=== PATIENT | female | born 1995 | race Caucasian/White ===

== ENCOUNTER 2016-10-14 14:48 | Inpatient (IN) | payer BC ==
[~2016-10-14] VITALS: Ht 160 cm; Wt 85.3 kg
[2016-10-18] MEDS ORDERED: LEVAQUIN DPS500 MG PO (15:43)
[2016-10-18] MEDS ORDERED: TYLENOL DPS325 MG PO (15:43)
[2016-10-18] MEDS ORDERED: PEPCID DPS20 MG PO (15:43)
[2016-10-18] MEDS ORDERED: COLACE-DPS100 MG PO (15:44)
[2016-10-18] MEDS ORDERED: MAALOX DPS30 ML PO (15:44)
[2016-10-18] MEDS ORDERED: MOTRIN-DPS400 MG PO (15:44)
[2016-10-18] MEDS ORDERED: ZOFRAN8 MG PO (15:44)
--- NOTE | 2016-10-20 15:34 | ER ---
ADMIT: 10/14/2016 RM/LOC: 625 [facility] MR#: [id number] [address] [facility] [address] [place], [place] [address] RIVERACHRISTOPHERJAY [facility] [place] [address] Emergency Room Report SEX: F AGE: 21 : 1995 DATE: 10/14/2016 HISTORY: The patient is a 21-year-old female, who presents to emergency room after 2 days of urinary tract infection. She was seen by Dr. Montalvo in the clinic 2 days ago, given Levaquin because she is allergic to Ceclor. The patient has had 3 doses of the antibiotic, but continues to have awful headache. She describes it as very annoying top of the head headache, nausea, low back pain with low abdominal tenderness, and low-grade fever. Her white count at Dr. Montalvo's office was 10.8, today we repeated the white count in spite of the antibiotics, is 14.7. Her GFR is 81, her UA shows wbc's 65 with clumps, blood 1+, leukocytes 2+, protein 2+, and rbc's 4. Culture sensitivity to follow. She had received 1 bag of normal saline to rehydrate her. Dr. Gilliam on-call DrAmberly for Dr. Montalvo gave orders. IMPRESSION: Pyelonephritis, acute nonresponsive to oral agents. Family notified, the patient will be admitted for antibiotic therapy. SHAYY Hood / Armando Trejo MD / anastasia JOB #: [id number] CC: Gerson Montalvo MD, Attending Physician Gerson Montalvo MD, Family Physician
--- NOTE | 2016-11-12 07:54 | DS ---
ADMIT: 10/14/2016 RM/LOC: 625 [facility] MR#: [id number] 2620 [facility] [address] [place], [place] [address] JAY RIVERA [facility] [place] [address] General Discharge Summary SEX: F AGE: 21 : 1995 ADMISSION DATE: 10/14/2016 DISCHARGE DATE: 10/17/2016 FINAL DIAGNOSES: 1. Bilateral pyelonephritis - Escherichia coli. 2. Dehydration secondary to nausea and vomiting - resolved. 3. Ceclor allergy (hives). BRIEF HISTORY: This is a 21-year-old, woman presented to the emergency room with a 1-week history of nausea, vomiting, fever, chills, and flank pain. She is seeing Dr. Cristobal in our office the day prior to this admission and was diagnosed with pyelonephritis and started on oral Levaquin. She continued to spike temps up to 102, but then began having worse vomiting. She also had some diarrhea, so presented to the emergency room. Following that evaluation, it was felt best to admit her for intravenous hydration and antibiotic. SIGNIFICANT LAB AND X-RAY: On 10/14, CBC showed a hemoglobin of 11.5 with normal indices. [place] [address] with a left shift. Serial CBCs were followed. By 10/17, her hemoglobin was 10.3, still with normal indices, white count of 8700. Admitting urinalysis in the emergency room showed a hazy urine with a 2+ protein, 1+ occult blood, 2+ leukocyte esterase, 65 wbc's per high-power field and 4 rbc's per high-power field. On 10/14, BMP was normal, but for a calcium of 8.4 mg/dL. Serial chemistries were followed, and by 10/17, her BMP showed a potassium of 3.3 mmol/L, calcium of 7.8 mg/dL and was otherwise within normal limits. Urine test on 10/14 was negative. Urine culture obtained in the emergency room, grew "multiple organisms present suspect introduced by collection technique." Office urine culture of the day prior to admission grew Escherichia coli greater than 100,000 colonies. On 10/14, CT scan of the abdomen and pelvis with IV contrast was read as "contrast changes consistent with bilateral pyelonephritis." HOSPITAL COURSE: The patient was admitted through the emergency room and the imaging and laboratory studies outlined below were begun. She was placed on morphine 1 to 4 mg IV q.4 hours p.r.n., Zofran 8 mg IV q.8 hours p.r.n. nausea and Levaquin 500 mg IV daily, and Bactrim DS b.i.d. She was allowed activity as tolerated and diet as tolerated. Subsequently, her Bactrim was discontinued, and she was placed on Zosyn 3.375 mg IV q.8 hours. She was placed on enoxaparin 40 mg daily for deep vein thrombosis prophylaxis. ADMIT: 10/14/2016 RM/LOC: 625 [facility] MR#: [id number] [address] [place] [id number] JAY RIVERA [address] [place] [address] General Discharge Summary SEX: F AGE: 21 : 1995 By 10/15, her maximum temp had been 100.2. She was feeling better. She had no abdominal tenderness. She has had mild bilateral flank tenderness. She was started on Motrin 400 mg q.4 to 6 hours p.r.n., in addition to her Tylenol. She was on routine MedSurg orders. By 10/16 (day 2), she continued to improve but felt "puffy" from her IV fluid replacement. She was given Lasix 20 mg IV x1 that morning. Her IV rate was changed to keep open. Her activity was increased as tolerated. By 10/17 (hospital day 3), she remained afebrile. Vital signs were normal. Laboratory studies were stable. It was felt safe to dismiss her to home. Arrangements were made for her to be seen by Dr. Cristobal in 7 to 10 days in followup in my absence. She will be allowed diet as tolerated, and activity as tolerated. MEDICATIONS: On dismissal, her medications included Levaquin 500 mg p.o. daily x10 days. PRN orders for: 1. Maalox. 2. Colace. 3. Motrin. 4. Tylenol. CONDITION ON DISCHARGE: Stable on the above treatment. FINAL DISPOSITION: As noted. PROGNOSIS: Good. Gerson Montalvo MD/ anastasia JOB #: [id number] CC: Gerson Montalvo MD, Attending Physician Gerson Montalvo MD, Family Physician
--- NOTE | 2016-11-28 15:48 | HP ---
ADMIT: 10/14/2016 RM/LOC: [address] [facility] MR#: [id number] [address] [facility] [address] [place], [place] [address] JAY RIVERA [address] [place] [address] History and Physical SEX: F AGE: 21 : 1995 DATE OF SERVICE: CHIEF COMPLAINT: Nausea, vomiting, fever, chills, flank pain. HISTORY OF PRESENT ILLNESS: This is a 21-year-old white female, who presented to the emergency room with a 1-week history of illness. She saw Dr. Cristobal yesterday in the office and was diagnosed with pyelonephritis, started on PO Levaquin and told her if she should develop nausea or vomiting that she should return. She gives about a one-week history of left-sided discomfort. She did not think too much about it. She started working out, thought it was more muscle soreness secondary to that and then gradually over the next couple of days, the pain kind of moved across to her back and to her right side as well. Her pain worsened. She had one day of increased urinary frequency, little bit of urgency, and then yesterday spiked fevers up to 102, so seek medical attention. She did have obvious UTI and pyelonephritis, was started on p.o. Levaquin. Took two doses yesterday, one about 1:00 and one before bed. She took another one this morning. Unfortunately, about 30 minutes after taking it, she began vomiting. She has also had diarrhea and still spiking fevers with worsening pain; therefore, she is being admitted for further workup and stabilization. PAST MEDICAL HISTORY: Unremarkable for any chronic illnesses. MEDICATIONS: She is on no routine medications other than: 1. Levaquin. 2. Aleve. ALLERGIES: INCLUDE CECLOR, WHICH CAUSES HIVES. FAMILY HISTORY: Father's history is pretty much unknown. Mother in good health. SOCIAL HISTORY: Does not smoke. Occasional alcohol use. 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 REVIEW OF SYSTEMS: GENERAL: She has had fevers and chills. HEENT: No blurry vision, double vision. CARDIAC: No chest pain. PULMONARY: No shortness of breath. GI: As per HPI. : As per HPI. ENDOCRINE: No polyuria or polydipsia. PSYCH: No depression. INTEGUMENTARY: No new rashes. PHYSICAL EXAMINATION: VITAL SIGNS: Blood pressure is 108/58, pulse 96, respirations 18, temp 99.2. GENERAL: She is in no acute distress. She is alert, oriented. HEENT: Pupils are reactive. Conjunctivae are clear. Clear nasal mucosa. Clear oropharynx. Dry mucous membranes. ADMIT: 10/14/2016 RM/LOC: [address] [facility] MR#: [id number] [address] [address] [place] [address] History and Physical SEX: F AGE: 21 : 1995 NECK: Soft and supple. LUNGS: Clear to auscultation with normal respiratory effort. HEART: Regular rate and rhythm. ABDOMEN: Soft. It is tender in right and left colic gutter. No rebound or guarding. Positive bowel sounds noted. Bilateral CVA tenderness is noted. EXTREMITIES: No cyanosis, no clubbing, no edema. LABORATORY DATA: White count 14,700, it was 10.8 in the office on Tuesday. Hemoglobin 11.5, platelets 280,000. Sodium 138, potassium 4.2, chloride 106, CO2 of 25, BUN 8, creatinine 1.0, glucose 98, calcium 8.4. Urine test is negative. UA shows 1+ blood, 2+ leukocyte esterase, 65 white blood cells, 4 RBCs. Lab and x-ray data as above. ASSESSMENT: 1. Bilateral pyelonephritis. 2. Dehydration. PLAN: We will admit, start IV antibiotics. We will start Levaquin and Zosyn. She has tolerated Amoxil in the past, so she should be fine with the penicillin-based antibiotic. We will focus our antibiotic coverage once we get culture results back. There is nothing back from the culture that is growing yesterday in the office. Zofran for nausea. Morphine for pain control. Aggressive hydration and change treatment as hospital course dictates. Luis Antonio Gilliam MD/ anastasia JOB #: [id number] CC: Gerson Montalvo, Attending Physician Gerson Montalvo, Family Physician
== END 2016-10-17 13:33 | disposition home or self-care (01) | DRG 690 ==
LOC: ER 14:48 → 6PED 16:50
PROVIDERS: ADMIT Family Medicine
DX: N10 Acute pyelonephritis (principal); B96.20 Unspecified Escherichia coli [E. coli] as the cause of diseases classified elsewhere; E86.0 Dehydration; R51 Headache